=== PATIENT | female | born 1930 | race Caucasian/White ===

== ENCOUNTER 2016-12-05 11:46 | Observation (INO) | payer MEDICARE, BC ==
[~2016-12-05] VITALS: Ht 157.5 cm; Wt 73.9 kg
[~2016-12-05 11:46] MED LIST: ASPIRIN EC81 M1 PO; ATIVAN0.5 MG PO; ATIVAN1 M1 PO; CATAPRES0.1 MG PO; CLONIDINE HCL0.1 MG PO; DITROPAN5 MG PO; FOLIC ACID1 MG PO; K-DUR20 ME1 PO; LEXAPRO10 M1 PO; LOPRESSOR25 MG/TA7 PO; MULTIVITAMIN1 TAB PO; NORCO 5/3251 TA1 PO; PROTONIX40 MG PO; TOPROL XL50 MG PO; TYLENOL325 M1 PO; TYLENOL325 MG PO
[2016-12-05 12:53] LABS: BASO % 0.2 % (0-2); EOS % 0.2 % (0-7); HCT-HEMATOCRIT 38.4 % (34.0-49.0); IMMATURE GRANULOCYTES ABSOLUTE 0.01 tho/cmm (0-0.03); IMMATURE GRANULOCYTES PERCENT 0.2 % (0-0.3); LYMPH % 16.5 % (20-45); LYMPH ABSOLUTE COUNT 0.9 tho/cmm (0.8-4.5); MCH (MEAN CORPUSCULAR HGB) 29.5 pg (28.0-32.0); MCHC MEAN CORPUSCULAR HGB CONC 33.9 % (32.0-36.0); MCV (MEAN CELL VOLUME) 87.3 fl (82.0-96.0); MEAN PLATELET VOLUME 9.4 cmc (9.4-12.4); MONO % 8.1 % (0-12); MONOCYTE ABSOLUTE COUNT 0.5 tho/cmm (0.0-1.2); NEUTROPHIL ABSOLUTE COUNT 4.3 tho/cmm (1.6-8.0); NEUTROPHIL-AUTOMATED 4.3 tho/cmm (1.6-8.0); NEUTROPHILS % 74.8 % (40-80); PLATELET COUNT 164 tho/cmm (150-450); RED CELL DISTRIBUTION WIDTH 15.7 % (12.4-16.4); WHITE BLOOD COUNT 5.7 tho/cmm (4.0-10.0)
[2016-12-05 13:15] LABS: ALBUMIN 3.7 g/dl (3.5-5.0); ALCOHOL (ETOH) <10 mg/dl (<10); ALKALINE PHOSPHATASE 82 U/L (33-138); ALT/SGPT 22 U/L (12-78); ANION GAP 17 mmol/L (0-20); AST/SGOT 24 U/L (10-40); BILIRUBIN,TOTAL 0.8 mg/dl (0-1.5); BLOOD UREA NITROGEN 13 mg/dl (6-24); CALCIUM 9.6 mg/dl (8.5-10.5); CARBON DIOXIDE-VENOUS 20 mmol/L (22-32); CHLORIDE 97 mmol/l (96-110); GLUCOSE 130 mg/dL (70-110); MAGNESIUM 1.9 mg/dl (1.8-2.6); POTASSIUM 4.5 mmol/L (3.7-5.1); SODIUM 129 mmol/L (135-145); eGFR VALUE FOR BLACK 60 mL/Min
[2016-12-05] MEDS ORDERED: LETROZOLE2.5 M1 PO (13:16)
[2016-12-05] MEDS ORDERED: FOLIC ACID1 M1 PO (13:16)
[2016-12-05] MEDS ORDERED: POLYETHYLENE GL17 G1 PO ×2 (13:17→13:23)
[2016-12-05] MEDS ORDERED: MILK OF MAGNESIA PO ×2 (13:17→13:22)
[2016-12-05] MEDS ORDERED: POTASSIUM CHLO20 ME3 PO (13:17)
[2016-12-05] MEDS ORDERED: THERA-M1 EAC1 PO (13:18)
[2016-12-05] MEDS ORDERED: TYLENOL325 M2 PO (13:19)
[2016-12-05] MEDS ORDERED: [UNRECOGNIZED DRUG - OTHER] TP (13:20)
[2016-12-05] MEDS ORDERED: CALCIUM500 M4 CH (13:20)
[2016-12-05] MEDS ORDERED: ATIVAN1 M2 PO (13:21)
[2016-12-05] MEDS ORDERED: CLONIDINE HCL0.1 M2 PO (13:21)
[2016-12-05] MEDS ORDERED: METOPROLOL TART25 M1 PO (13:22)
[2016-12-05] MEDS ORDERED: LOCOID TP (13:23)
[2016-12-05] MEDS ORDERED: SENEXON-S TABL1 EAC1 PO (13:23)
[2016-12-05] MEDS ORDERED: SYSTANE 0.3-0.415 ML OP (13:24)
[2016-12-05] MEDS ORDERED: ULTRAM50 M1 PO (13:24)
[2016-12-05] MEDS ORDERED: AMBIEN5 M1 PO (13:24)
[2016-12-05 13:31] LABS: PROCALCITONIN <0.05 ng/ml (0.05-0.09)
[2016-12-05 14:03] LABS: URINE BILIRUBIN NEGATIVE (NEG); URINE BLOOD LARGE (NEG); URINE GLUCOSE (UA) NEGATIVE (NEG); URINE KETONE NEGATIVE (NEG); URINE LEUKOCYTE ESTERASE NEGATIVE (NEG); URINE NITRITE NEGATIVE (NEG); URINE PROTEIN MODERATE (NEG)
[2016-12-05 14:05] LABS: URINE APPEARANCE CLEAR; URINE COLOR YELLOW
[2016-12-05 14:26] LABS: URINE RBC 25-30 /[HPF] (0-5)
[2016-12-05 14:30] LABS: URINE AMORPHOUS 1+; URINE EPITHELIAL CELLS 0-1 /[HPF] (0-10)
[2016-12-06 05:04] LABS: BASO % 0.2 % (0-2); EOS % 0.2 % (0-7); HCT-HEMATOCRIT 36.6 % (34.0-49.0); HGB-HEMOGLOBIN 12.1 gm/dl (12.0-15.5); IMMATURE GRANULOCYTES ABSOLUTE 0.01 tho/cmm (0-0.03); IMMATURE GRANULOCYTES PERCENT 0.2 % (0-0.3); LYMPH % 20.4 % (20-45); LYMPH ABSOLUTE COUNT 0.9 tho/cmm (0.8-4.5); MCH (MEAN CORPUSCULAR HGB) 29.2 pg (28.0-32.0); MCHC MEAN CORPUSCULAR HGB CONC 33.1 % (32.0-36.0); MCV (MEAN CELL VOLUME) 88.2 fl (82.0-96.0); MEAN PLATELET VOLUME 9.6 cmc (9.4-12.4); MONO % 7.8 % (0-12); MONOCYTE ABSOLUTE COUNT 0.4 tho/cmm (0.0-1.2); NEUTROPHIL ABSOLUTE COUNT 3.2 tho/cmm (1.6-8.0); NEUTROPHIL-AUTOMATED 3.2 tho/cmm (1.6-8.0); NEUTROPHILS % 71.2 % (40-80); PLATELET COUNT 161 tho/cmm (150-450); RED BLOOD COUNT 4.15 mil/cmm (4.00-5.20); RED CELL DISTRIBUTION WIDTH 15.9 % (12.4-16.4); WHITE BLOOD COUNT 4.5 tho/cmm (4.0-10.0)
[2016-12-06 05:13] LABS: ANION GAP 13 mmol/L (0-20); BLOOD UREA NITROGEN 12 mg/dl (6-24); CALCIUM 8.8 mg/dl (8.5-10.5); CARBON DIOXIDE-VENOUS 20 mmol/L (22-32); CHLORIDE 100 mmol/l (96-110); GLUCOSE 122 mg/dL (70-110); SODIUM 129 mmol/L (135-145); eGFR VALUE FOR BLACK 68 mL/Min
== END 2016-12-06 18:38 ==
LOC: EDMED 11:46 → EMR2 15:05 → CAR1 21:00
PROVIDERS: Emergency Medicine; ADMIT Family Medicine
DX: R63.0 Anorexia (principal); E86.0 Dehydration; R53.1 Weakness; N19 Unspecified kidney failure; F03.90 Unspecified dementia, unspecified severity, without behavioral disturbance, psychotic disturbance, mood disturbance, and anxiety; C50.919 Malignant neoplasm of unspecified site of unspecified female breast; Z79.811 Long term (current) use of aromatase inhibitors; Z79.899 Other long term (current) drug therapy; Z88.8 Allergy status to other drugs, medicaments and biological substances
CPT/HCPCS: G0480; G8978-GP-CI; G8979-GP-CI; G8980-GP-CI; J2405; J7030; P9612